=== PATIENT | female | born 1995 | race Caucasian/White ===

== ENCOUNTER 2025-09-16 08:32 | Day surgery (SDC) | payer OTHER ==
[2025-09-16] MEDS ORDERED: Acetaminophen 500 MG TAB ONE (08:46)
[2025-09-16] MEDS: Acetaminophen 500 MG TAB PO SCH (08:49)
[2025-09-16] MEDS: Iron Sucrose Complex 500 MG in Sodium Chloride 0.9% 250 ML 250 ML IVPB SCH (09:42)
[2025-09-16 16:30] VITALS: BP 128/60; TEMP 98.5
== END 2025-09-16 14:35 | disposition home or self-care (01) ==
LOC: ONC/OP 08:32
PROVIDERS: ATTEND Obstetrics & Gynecology
DX: O99.013 Anemia complicating pregnancy, third trimester (principal); O99.283 Endocrine, nutritional and metabolic diseases complicating pregnancy, third trimester; O47.9 False labor, unspecified; Z3A.34 34 weeks gestation of pregnancy
CPT/HCPCS: 96365; 96366; J1756; J7050